=== PATIENT | female | born 1990 | race Caucasian/White ===

== ENCOUNTER 2021-08-14 11:33 | Emergency (ER) | payer OTHER, SELFPAY ==
[2021-08-14 11:49] VITALS: BP 113/70; PULSE 77; RESP 18; TEMP 37.2; O2SAT 100
--- NOTE | 2021-08-14 12:18 | ED.URI ---
HPI - URI/Sore Throat General Chief Complaint: Upper Respiratory Infection Stated Complaint: cough,headache,congestion Time Seen by Provider: 08/14/21 12:09 Source: patient Mode of arrival: ambulatory Limitations: no limitations History of Present Illness HPI Narrative: Patient presents today with a 5-day history of dry cough, nasal congestion, body aches and headache, fatigue, intermittent shortness of breath with exertion. She also reports fever up to 102 that broke last night. States her family has been sick with, colds , states they are improving. She has done 2 home COVID-19 tests that have been negative. She has been taking several [id number] medications at home without much relief. She has declined strep and influenza testing here today. 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 Related Data Home Medications Medication Instructions Recorded Confirmed spironolactone 100 mg tablet 1 tablet DAILY 08/14/21 08/14/21 sumatriptan succinate 100 mg tablet 1 tablet PO DIRECTED 08/14/21 08/14/21 Allergies Allergy/AdvReac Type Severity Reaction Status Date / Time No Known Allergies Allergy Verified 08/14/21 11:56 Review of Systems Review of Systems: CONSTITUTIONAL: Denies chills, or sweats.+ Body aches, fever EYES: Denies visual changes, redness, or discharge. ENT: Denies rhinorrhea, or otalgia.+ Sore throat, congestion CARDIOVASCULAR: Denies chest pain, palpitations, or edema. RESPIRATORY: + Cough, shortness of breath with exertion GASTROINTESTINAL: Denies abdominal pain, nausea, vomiting, or diarrhea. GENITOURINARY: Denies dysuria or hematuria. SKIN: Denies rash, itching, or wounds. MUSCULOSKELETAL: Denies back pain, joint pain, or myalgia. NEUROLOGIC: Denies numbness, tingling, or weakness.+headache PSYCH: Denies depression or anxiety. Course Course Level of Care: Express Care Visit Vital Signs Vital signs: Vital Signs Temperature 98.9 F 08/14/21 11:49 Pulse Rate 77 08/14/21 11:49 Respiratory Rate 18 08/14/21 11:49 Blood Pressure 113/70 08/14/21 11:49 Pulse Oximetry 100 08/14/21 11:49 Oxygen Delivery Room Air 08/14/21 11:49 Temperature 98.9 F 08/14/21 11:49 Pulse Rate 77 08/14/21 11:49 Respiratory Rate 18 08/14/21 11:49 Blood Pressure 113/70 08/14/21 11:49 Pulse Oximetry 100 08/14/21 11:49 Oxygen Delivery Room Air 08/14/21 11:49 Reviewed MDM - URI/Sore Throat Differential Diagnosis Differential diagnosis: Likely upper respiratory infection, sinusitis, viral infection, bronchitis and influenza Critical Care Time Critical Care Time Critical Care Time: No Discharge Plan Discharge Clinical Impression: Bronchitis Upper respiratory infection Qualifiers: URI type: unspecified URI Qualified Code(s): J06.9 - Acute upper respiratory infection, unspecified Patient Disposition: Home, Self-Care Condition: Stable Instructions: Upper Respiratory Infection (DC), Acute Bronchitis (ED) Additional Instructions: Your symptoms are likely due to a viral illness, which is not treated with antibiotics. Virus symptoms can last for up to 10-14 days. Take Tylenol or ibuprofen for pain or fever. Rest and stay hydrated. Take the prednisone, use the albuterol inhaler, and take the Cheratussin as directed. Do not drive within 6 hours of taking the Cheratussin as it can make you drowsy. Follow up with your PCP in 5 days if symptoms are not improving, or sooner if symptoms are worsening. Prescriptions: New codeine-guaifenesin 10-100 mg/5 mL liquid 10 ml PO HS PRN (Reason: cough) Qty: 120 0RF prednisone 50 mg tablet 50 mg PO DAILY 5 Days Qty: 5 0RF albuterol sulfate [ProAir HFA] 90 mcg/actuation HFA aerosol inhaler 2 puff INHALATION Q4-6H PRN (Reason: shortness of breath or wheezing) Qty: 18 0RF No Action sumatriptan succinate 100 mg tablet 1 tablet PO DIRECTED spironolactone 100
== END 2021-08-14 12:24 | disposition home or self-care (01) ==
PROVIDERS: Emergency Provider Nurse Practitioner; PCP Pediatrics
DX: J40 Bronchitis, not specified as acute or chronic (principal); J06.9 Acute upper respiratory infection, unspecified
CPT/HCPCS: 99213; G0463